=== PATIENT | male | born 1985 | race Caucasian/White ===

== ENCOUNTER 2017-05-21 13:22 | Emergency (ER) | payer OTHER ==
[2017-05-21 15:43] VITALS: BP 142/71; BMI 27.6
--- NOTE | 2017-05-21 16:20 | PDOC ---
History of Present Illness - General Chief Complaint: Chest Pain Stated Complaint: CHEST PAIN Time Seen by Provider: 05/21/17 15:21 History Source: Patient - History of Present Illness Presenting Symptoms: Other Past History - Past Medical History Allergies/Adverse Reactions: Allergies Allergy/AdvReac Type Severity Reaction Status Date / Time No Known Allergies Allergy Verified 05/21/17 15:43 COPD: No - Surgical History Appendectomy: Yes - Immunization History Immunization Up to Date: No - Suicide/Smoking/Psychosocial Hx Smoking History: Never smoked Have you smoked in the past 12 months: No Information on smoking cessation initiated: No Hx Alcohol Use: No Drug/Substance Use Hx: No Review of Systems - Review of Systems Constitutional: No: Chills, Fever HEENTM: Yes: Eye Pain. No: Blurred Vision, Tearing Respiratory: No: Cough, Shortness of Breath Cardiac (ROS): Yes: Chest Pain. No: Lightheadedness, Palpitations, Syncope Musculoskeletal: Yes: Neck Pain *Physical Exam - Vital Signs Last Vital Signs Temp Pulse Resp BP Pulse Ox 142/71 99 05/21/17 15:40 05/21/17 15:40 - Physical Exam General Appearance: Yes: Appropriately Dressed. No: Apparent Distress HEENT: positive: Normal ENT Inspection, Normal Voice. negative: Scleral Icterus (R), Scleral Icterus (L) Neck: positive: Tender (over L sternocleidomastoid), Supple. negative: Lymphadenopathy (R), Lymphadenopathy (L) Respiratory/Chest: positive: Lungs Clear, Normal Breath Sounds. negative: Respiratory Distress Cardiovascular: positive: Regular Rate, S1, S2 Gastrointestinal/Abdominal: positive: Soft. negative: Tender Integumentary: positive: Dry, Warm Neurologic: positive: Fully Oriented, Alert, Normal Mood/Affect Medical Decision Making - Medical Decision Making 05/21/17 16:15 31-year-old male, denies any past medical history or illicit drugs, here w/ multiple complaints. Patient complaining of non-radiating., sharp left-sided chest pain that comes and goes, lasting for seconds that has been present for the past 4 days. Nothing makes it better or worse and no shortness of breath, diaphoresis, palpitations, nausea or vomiting. Patient also complaining of left -sided neck pain x several days, only hurts to the touch. Denies any trauma. No upper extremity sensory change, or weakness. Has not taken anything for pain. Patient also complaining of vague left eye pain 2 days, without discharge, tearing, photophobia, foreign body sensation or visual change. No trauma. No contact lens use. No sick contacts. See exam CP No RF for VAD PERCs out Stable w/ unremarkable exam -ekg Neck pain M/l MSK No red flags -dc w/ OTC pain control L eye pain No findings on exam to explain symptoms No trauma No contact harmony use Dc w/ f/u 05/21/17 18:22 Pt eloped while waiting for ekg 05/21/17 18:30 *DC/Admit/Observation/Transfer Diagnosis at time of Disposition: Atypical chest pain, Neck pain Eye pain Qualifiers: Laterality: left Qualified Code(s): H57.12 - Ocular pain, left eye - Discharge Dispostion Disposition: ELOPED - Referrals Referrals: Homar Galeana MD [Staff Physician] - - Patient Instructions - Post Discharge Activity
--- NOTE | 2017-05-22 08:57 | EKG ---
Test Reason : Blood Pressure : / mmHG Vent. Rate : 091 BPM Atrial Rate : 091 BPM P-R Int : 166 ms QRS Dur : 086 ms QT Int : 340 ms P-R-T Axes : 056 028 038 degrees QTc Int : 418 ms NORMAL SINUS RHYTHM NORMAL ECG NO PREVIOUS ECGS AVAILABLE Confirmed by Lars Kimball MD ([id number]) on 05/22/2017 8:56:54 AM Referred By: Confirmed By:Lars Kimball MD
== END 2017-05-21 18:40 | disposition left against medical advice (07) ==
LOC: JER 13:22
DX: R07.89 Other chest pain (principal); M54.2 Cervicalgia; H57.12 Ocular pain, left eye
CPT/HCPCS: 93005; 93010; 99282-25

== ENCOUNTER 2017-07-18 16:15 | Emergency (ER) | payer OTHER ==
[2017-07-18 16:21] VITALS: BP 116/72; PULSE 72; TEMP 97.8; BMI 26.7
--- NOTE | 2017-07-18 16:22 | PDOC ---
Rapid Medical Evaluation Time Seen by Provider: 07/18/17 16:17 Medical Evaluation: Allergies Allergy/AdvReac Type Severity Reaction Status Date / Time No Known Allergies Allergy Verified 05/21/17 15:43 07/18/17 16:17 I have performed a brief in-person evaluation of this patient. The patient presents with a chief complaint of: diarrhea, abdominal pain x 4 days, denies fever, chills Pertinent physical exam findings: well appearing I have ordered the following: labs The patient will proceed to the ED for further evaluation. Discharge Disposition - Diagnosis Abdominal pain - Referrals - Patient Instructions - Post Discharge Activity
[2017-07-18 17:56] LABS: BASO % 0.8 % (0-2.0); EOS % 1.8 % (0-4.5); HEMATOCRIT 49.1 % (35.4-49); HEMOGLOBIN 16.8 GM/dL (11.7-16.9); LYMPH % 27.7 % (8-40); MCH 30.2 pg (25.7-33.7); MCHC 34.3 g/dl (32.0-35.9); MEAN CELL VOLUME 88.2 fl (80-96); MEAN PLT VOLUME 8.3 fl (7.5-11.1); MONO % 8.3 % (3.8-10.2); NEUT % 61.4 % (42.8-82.8); PLATELET COUNT 400 K/MM3 (134-434); RBC 5.57 M/mm3 (4.00-5.60); RDW 13.6 % (11.9-15.9)
[2017-07-18 18:21] LABS: ALBUMIN 4.7 g/dl (3.4-5.0); ANION GAP 6 (8-16); BLOOD UREA NITROGEN 27 mg/dL (7-18); CALCIUM 9.4 mg/dL (8.5-10.1); CHLORIDE 106 mmol/L (98-107); CO2 25 mmol/L (21-32); CREATININE 1.2 mg/dL (0.7-1.3); GLUCOSE,RANDOM 83 mg/dL (74-106); POTASSIUM 4.3 mmol/L (3.5-5.1); SGOT/AST 31 U/L (15-37); SGPT/ALT 73 U/L (12-78); SODIUM 137 mmol/L (136-145)
[2017-07-18 18:23] LABS: ALK PHOS 101 U/L (45-117); BILIRUBIN,TOTAL 0.2 mg/dL (0.2-1.0); TOT PROT 8.7 g/dl (6.4-8.2)
[2017-07-18] MEDS ORDERED: SODIUM CHLORIDE 1,000 ML IV STA (19:48)
--- NOTE | 2017-07-18 20:01 | PDOC ---
History of Present Illness - General Chief Complaint: Pain, Acute Stated Complaint: VOMITING/DIARRHEA Time Seen by Provider: 07/18/17 16:17 History Source: Patient - History of Present Illness Initial Comments: 07/18/17 19:50 31 YEAR OLD MALE WITH DIARRHEA x 3 days. denies NV, abdominal pain, fever, hematochezia. Patient denies sick contacts, eating "bad" food no past medical history Abdominal Pain Onset Location: reports: generalized abdomen Pain Radiation: reports: no radiation Activities at Onset: reports: none Aggravating Factors: improves with: None Past History - Past Medical History Allergies/Adverse Reactions: Allergies Allergy/AdvReac Type Severity Reaction Status Date / Time No Known Allergies Allergy Verified 07/18/17 16:21 Home Medications: Ambulatory Orders NK [No Known Home Medication] 07/18/17 COPD: No - Surgical History Appendectomy: Yes - Immunization History Immunization Up to Date: No - Suicide/Smoking/Psychosocial Hx Smoking History: Never smoked Have you smoked in the past 12 months: No Information on smoking cessation initiated: No Hx Alcohol Use: No Drug/Substance Use Hx: No Substance Use Type: None Review of Systems - Review of Systems Able to Perform ROS?: Yes Is the patient limited Ukrainian proficient: No Constitutional: No: Symptoms Reported, See HPI, Chills, Diaphoresis, Fever, Loss of Appetite, Malaise, Night Sweats, Weakness, Weight Stable, Unintentional Wgt. Loss, Unexplained wgt Loss, Other ABD/GI: Yes: Diarrhea. No: Symptoms Reported, See HPI, Abdominal Distended, Abd. Pain w/ defecation, Blood Streaked Bowels, Constipated, Difficulty Swallowing, Nausea, Poor Appetite, Poor Fluid Intake, Rectal Bleeding, Vomiting , Indigestion, Abdominal cramping, Tarry Stools, Other : No: Symptoms Reported, See HPI, Burning, Dysuria, Discharge, Frequency, Flank Pain, Hematuria, Incontinence, Pain, Urgency, Testicular Mass, Testicular Swelling, Lesions, Testicular Pain, Other Musculoskeletal: No: Symptoms Reported, See HPI, Back Pain, Gout, Joint Pain, Joint Swelling, Muscle Pain, Muscle Weakness, Neck Pain, Joint Stiffness, Other Integumentary: No: Symptoms Reported, See HPI, Bruising, Change in Color, Change in Hair/Nails, Dryness, Erythema, Flushing, Lesions, Lumps, Pallor, Pruritus, Rash, Sweating, Other Neurological: No: Symptoms reported, See HPI, Headache, Numbness, Paresthesia, Pre-Existing Deficit, Seizure, Tingling, Tremors, Weakness, Unsteady Gait, Ataxia, Dizziness, Other Endocrine: No: Symptoms Reported, See HPI, Excessive Sweating, Flushing, Intolerance to Cold, Intolerance to Heat, Increased Hunger, Increased Thirst, Increased Urine, Unexplained Weight Gain, Unexplained Weight Loss, Change in Weight, Other *Physical Exam - Vital Signs Last Vital Signs Temp Pulse Resp BP Pulse Ox 97.8 F 72 16 116/72 100 07/18/17 16:19 07/18/17 16:19 07/18/17 16:19 07/18/17 16:19 07/18/17 16:19 - Physical Exam General Appearance: Yes: Appropriately Dressed Respiratory/Chest: positive: Lungs Clear, Normal Breath Sounds Gastrointestinal/Abdominal: positive: Normal Bowel Sounds, Tender (mild right sided tenderness), Soft Musculoskeletal: positive: Normal Inspection. negative: CVA Tenderness Extremity: positive: Normal Capillary Refill, Normal Inspection, Normal Range of Motion Integumentary: positive: Normal Color, Dry, Warm Neurologic: positive: Fully Oriented, Alert ED Treatment Course - LABORATORY CBC & Chemistry Diagram: 07/18/17 17:08 07/18/17 17:08 - ADDITIONAL ORDERS Additional order review: Laboratory Results 07/18/17 07/18/17 17:08 17:08 Sodium 137 Potassium 4.3 Chloride 106 Carbon Dioxide 25 Anion Gap 6 L BUN 27 H Creatinine 1.2 Creat Clearance w eGFR > 60 Random Glucose 83 Calcium 9.4 Total Bilirubin 0.2 AST 31 ALT 73 Alkaline Phosphatase 101 Total Protein 8.7 H Albumin 4.7 Lipase 284 07/18/17 17:08 RBC 5.57 MCV 88.2 MCHC 34.3 RDW 13.6 MPV 8.3 Neutrophils % 61.4 Lymphocytes % 27.7 Monocytes % 8.3 Eosinophils % 1.8 Basophils % 0.8 Progress Note - Progress Note Progress Note: A: gasteroenteritis P: cbc wnl cmp: BUN elevated UA: pending. *DC/Admit/Observation/Transfer Diagnosis at time of Disposition: Gastroenteritis Diarrhea Qualifiers: Diarrhea type: unspecified type Qualified Code(s): R19.7 - Diarrhea, unspecified - Discharge Dispostion Disposition: HOME - Referrals - Patient Instructions Printed Discharge Instructions: Diarrhea Additional Instructions: drink plenty of fluids you may drink gatrorade. start a BRAT (bananas, rice apples, toast diet) follow up with your doctor as soon as possible. - Post Discharge Activity Forms/Work/School Notes: Back to Work
--- NOTE | 2017-07-18 20:06 | PDOC ---
*Physical Exam - Vital Signs Last Vital Signs Temp Pulse Resp BP Pulse Ox 97.8 F 72 16 116/72 100 07/18/17 16:19 07/18/17 16:19 07/18/17 16:19 07/18/17 16:19 07/18/17 16:19 ED Treatment Course - LABORATORY CBC & Chemistry Diagram: 07/18/17 17:08 07/18/17 17:08 - ADDITIONAL ORDERS Additional order review: Laboratory Results 07/18/17 07/18/17 17:08 17:08 Sodium 137 Potassium 4.3 Chloride 106 Carbon Dioxide 25 Anion Gap 6 L BUN 27 H Creatinine 1.2 Creat Clearance w eGFR > 60 Random Glucose 83 Calcium 9.4 Total Bilirubin 0.2 AST 31 ALT 73 Alkaline Phosphatase 101 Total Protein 8.7 H Albumin 4.7 Lipase 284 07/18/17 17:08 RBC 5.57 MCV 88.2 MCHC 34.3 RDW 13.6 MPV 8.3 Neutrophils % 61.4 Lymphocytes % 27.7 Monocytes % 8.3 Eosinophils % 1.8 Basophils % 0.8 Medical Decision Making - Medical Decision Making 07/18/17 20:05 agree with care from CIC[facility] Jimenez *DC/Admit/Observation/Transfer Diagnosis at time of Disposition: Gastroenteritis Diarrhea Qualifiers: Diarrhea type: unspecified type Qualified Code(s): R19.7 - Diarrhea, unspecified - Referrals - Patient Instructions - Post Discharge Activity
[2017-07-18 20:36] LABS: URINE APPEARANCE CLEAR; URINE BILIRUBIN NEGATIVE (<2.0 mg/dL); URINE BLOOD NEGATIVE (NEGATIVE); URINE COLOR STRAW; URINE GLUCOSE (UA) NEGATIVE (NEGATIVE); URINE KETONE NEGATIVE (NEGATIVE); URINE LEUK ESTERASE NEGATIVE (NEGATIVE); URINE NITRITE NEGATIVE (NEGATIVE); URINE PROTEIN NEGATIVE (NEGATIVE); URINE UROBILINOGEN NEGATIVE mg/dL (0.2-1.0)
== END 2017-07-18 21:15 | disposition home or self-care (01) ==
LOC: JER 16:15
PROC: 3E0337Z Introduction of Electrolytic and Water Balance Substance into Peripheral Vein, Percutaneous Approach (ICD-10-PCS; principal; 2017-07-18)
DX: K52.9 Noninfective gastroenteritis and colitis, unspecified (principal)
CPT/HCPCS: 36415; 80053; 81003; 83690; 85025; 96360; 99282-25; J7030

== ENCOUNTER 2018-02-26 13:51 | Emergency (ER) | payer OTHER ==
[2018-02-26 13:59] VITALS: BP 132/83; PULSE 81; TEMP 99; BMI 27.8
--- NOTE | 2018-02-26 14:40 | PDOC ---
History of Present Illness - General Chief Complaint: Back Pain Stated Complaint: BACK PAIN Time Seen by Provider: 02/26/18 14:26 History Source: Patient Exam Limitations: No Limitations - History of Present Illness Initial Comments: 02/26/18 15:03 Patient states woke up 3 days ago with mid to low back pain. Denies any knowledge of injury, heavy lifting or strenuous activity. 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 Denies fever, denies any dysuria, denies any bowel changes. Has taken only one Tylenol yesterday for relief of pain. Occurred: reports: yesterday Severity: reports: mild, moderate Pain Location: reports: back Loss of Consciousness: no loss of consciousness Associated Symptoms (Fall): denies symptoms Past History - Travel Traveled outside of the country in the last 30 days: No Close contact w/someone who was outside of country & ill: No - Past Medical History Allergies/Adverse Reactions: Allergies Allergy/AdvReac Type Severity Reaction Status Date / Time No Known Allergies Allergy Verified 02/26/18 13:54 Home Medications: Ambulatory Orders Cyclobenzaprine HCl 10 mg PO Q8H PRN #14 tablet 02/26/18 Naproxen [Naprosyn -] 500 mg PO BID #30 tablet 02/26/18 COPD: No - Surgical History Appendectomy: Yes - Immunization History Immunization Up to Date: No - Suicide/Smoking/Psychosocial Hx Smoking History: Never smoked Have you smoked in the past 12 months: No Hx Alcohol Use: No Drug/Substance Use Hx: No Substance Use Type: None Review of Systems - Review of Systems Able to Perform ROS?: Yes Is the patient limited Tuvaluan proficient: Yes Constitutional: Yes: Symptoms Reported, See HPI. No: Fever, Loss of Appetite, Malaise HEENTM: No: Symptoms Reported Respiratory: No: Symptoms reported Musculoskeletal: Yes: Symptoms Reported, See HPI, Back Pain, Muscle Pain Integumentary: No: Symptoms Reported All Other Systems: Reviewed and Negative *Physical Exam - Vital Signs Last Vital Signs Temp Pulse Resp BP Pulse Ox 99.0 F 81 16 132/83 97 02/26/18 13:54 02/26/18 13:54 02/26/18 13:54 02/26/18 13:54 02/26/18 13:54 - Physical Exam General Appearance: Yes: Nourished, Appropriately Dressed, Apparent Distress, Mild Distress HEENT: positive: IWONA, Normal ENT Inspection, Normal Voice, TMs Normal, Pharynx Normal Neck: positive: Supple Respiratory/Chest: positive: Lungs Clear Gastrointestinal/Abdominal: positive: Soft Musculoskeletal: positive: Normal Inspection, Muscle Spasm (tender tight spasm to paravertebral spinous muscles, worse on the left than the right primarily at waistline and extending up to lower trapezius and down into lumbar paravertebral spinous muscles. Has no bone pain, crepitus or step-offs. Ambulatory but walks with minor list to the left). negative: CVA Tenderness, Vertebral Tenderness Extremity: positive: Normal Capillary Refill, Normal Inspection, Normal Range of Motion, Tender Integumentary: positive: Normal Color, Dry, Warm, Pale Neurologic: positive: handle finisher II-XII NML intact, Fully Oriented, Alert, Normal Mood/ Affect, Normal Response, Motor Strength 5/5 Moderate Sedation - Procedure Monitoring Vital Signs: Procedure Monitoring Vital Signs Temperature 99.0 F 02/26/18 13:54 Pulse Rate 81 02/26/18 13:54 Respiratory Rate 16 02/26/18 13:54 Blood Pressure 132/83 02/26/18 13:54 O2 Sat by Pulse Oximetry (%) 97 02/26/18 13:54 Progress Note - Progress Note Progress Note: Low back strain, we'll treat with NSAIDs and cyclobenzaprine *DC/Admit/Observation/Transfer Diagnosis at time of Disposition: Low back strain Qualifiers: Encounter type: initial encounter Qualified Code(s): S39.012A - Strain of muscle, fascia and tendon of lower back, initial encounter - Discharge Dispostion Disposition: HOME Condition at time of disposition: Stable Decision to Admit order: No - Referrals Referrals: Bob Dela Cruz MD [Staff Physician] - - Patient Instructions Printed Discharge Instructions: DI for Back Strain or Sprain Additional Instructions: Rest, no heavy lifting or exercise until pain is resolved Hot soaks to neck and low back as often as possible/hot showers or Jacuzzis No massage or therapy until spasm is gone Continue Naprosyn 500 mg tablet, 1 tablet every 12 hours for the next 3 days then as needed for pain and swelling Cyclobenzaprine 1-10mg every 8 hours as needed for spasm If not significant improvement within 24 hours with medication and rest regime, followup with private physician for change in medications and /or therapy. - Post Discharge Activity Forms/Work/School Notes: Back to Work
== END 2018-02-26 15:10 | disposition home or self-care (01) ==
LOC: JERFT 13:51
DX: S39.012A Strain of muscle, fascia and tendon of lower back, initial encounter (principal); X58.XXXA Exposure to other specified factors, initial encounter; Y93.89 Activity, other specified; Y92.89 Other specified places as the place of occurrence of the external cause; Y99.8 Other external cause status
CPT/HCPCS: 99281-25

== ENCOUNTER 2018-06-19 15:12 | Emergency (ER) | payer OTHER ==
[2018-06-19 15:18] VITALS: BP 123/78; PULSE 97; TEMP 98; BMI 26.4
--- NOTE | 2018-06-19 15:41 | PDOC ---
History of Present Illness - General Chief Complaint: Rash Stated Complaint: Left foot rash,pain Time Seen by Provider: 06/19/18 15:24 History Source: Patient Exam Limitations: No Limitations - History of Present Illness Initial Comments: 06/19/18 15:36 Patient is here with complaints of painful rash on the bottom of his left foot . States noticed it approximately one week ago but admits may have had 1 or 2 lesions previous to that. No one else at home, and his right foot is not affected. Past History - Travel Traveled outside of the country in the last 30 days: No Close contact w/someone who was outside of country & ill: No - Past Medical History Allergies/Adverse Reactions: Allergies Allergy/AdvReac Type Severity Reaction Status Date / Time No Known Allergies Allergy Verified 06/19/18 15:18 Home Medications: Ambulatory Orders Cyclobenzaprine HCl 10 mg PO Q8H PRN #14 tablet 02/26/18 Naproxen [Naprosyn -] 500 mg PO BID #30 tablet 02/26/18 COPD: No - Surgical History Appendectomy: Yes - Immunization History Immunization Up to Date: No - Suicide/Smoking/Psychosocial Hx Smoking History: Never smoked Have you smoked in the past 12 months: No Information on smoking cessation initiated: No Hx Alcohol Use: No Drug/Substance Use Hx: No Substance Use Type: None Review of Systems - Review of Systems Able to Perform ROS?: Yes Is the patient limited Guamanian proficient: Yes Constitutional: Yes: See HPI. No: Symptoms Reported, Fever, Malaise HEENTM: No: Symptoms Reported Respiratory: No: Symptoms reported Integumentary: Yes: Symptoms Reported, See HPI, Lesions (to left foot only ) Neurological: No: Symptoms reported All Other Systems: Reviewed and Negative *Physical Exam - Vital Signs Last Vital Signs Temp Pulse Resp BP Pulse Ox 98 F 97 H 18 123/78 99 06/19/18 15:16 06/19/18 15:16 06/19/18 15:16 06/19/18 15:16 06/19/18 15:16 - Physical Exam General Appearance: Yes: Nourished, Appropriately Dressed, Apparent Distress, Mild Distress HEENT: positive: IWONA, Normal ENT Inspection, TMs Normal, Pharynx Normal Neck: positive: Supple. negative: Tender Integumentary: positive: Normal Color, Other (left plantar aspect foot has multiple lesions consistent with plantar warts grouped in the first and second metatarsal area, then another patch noted in the distal midfoot with scattered lesions. Right foot not affected. Has full range of motion to toes, no erythema , is mildly tender with deep palpation.) Neurologic: positive: digital photo printer II-XII NML intact, Fully Oriented, Alert, Normal Mood/ Affect, Normal Response, Motor Strength 5/5 Moderate Sedation - Procedure Monitoring Vital Signs: Procedure Monitoring Vital Signs Temperature 98 F 06/19/18 15:16 Pulse Rate 97 H 06/19/18 15:16 Respiratory Rate 18 06/19/18 15:16 Blood Pressure 123/78 06/19/18 15:16 O2 Sat by Pulse Oximetry (%) 99 06/19/18 15:16 Medical Decision Making - Medical Decision Making 06/19/18 15:41 Severe plantar wart infestation to plantar aspect left foot, will refer to podiatry for treatment *DC/Admit/Observation/Transfer Diagnosis at time of Disposition: Plantar wart of left foot - Discharge Dispostion Disposition: HOME Condition at time of disposition: Stable Decision to Admit order: No - Referrals Referrals: Ben Alexis MD [Staff Physician] - - Patient Instructions Printed Discharge Instructions: DI for Plantar Warts Additional Instructions: Rest, elevate foot, avoid excessive walking Avoid heavy lifting or exercise until pain and swelling is resolved or until further directed Keep area highly elevated to reduce swelling Wear supportive shoes/tennis shoes-sneakers Soak foot 3-4 times a day for the next 2-3 days until healed in warm soapy water. Reapply bacitracin ointment and bulky dressing. May use foot cushion pads, (Dr. Page's corn pads at wound site to help lift and cushion the area until healed) Followup with private physician network operations center engineer for evaluation and treatment as soon as possible May use ibuprofen 2-200 mg tablets every 6 hours as needed for pain - Post Discharge Activity Forms/Work/School Notes: Back to Work
== END 2018-06-19 16:07 | disposition home or self-care (01) ==
LOC: JERFT 15:12
DX: B07.0 Plantar wart (principal)
CPT/HCPCS: 99281-25